=== PATIENT | male | born 1995 | race Caucasian/White ===

== ENCOUNTER 2020-03-29 13:54 | Emergency (ER) | payer MEDICAID, OTHER ==
[~2020-03-29] VITALS: Ht 160 cm; Wt 56.0 kg
[2020-03-29] MEDS ORDERED: HYDROCODONE/ACETAMINOPHEN 5/325MG TABLET PO ONE (14:45)
[2020-03-29] MEDS ORDERED: KETOROLAC 60MG/2ML VIAL IM ONE (14:45)
[2020-03-29] MEDS ORDERED: LIDOCAINE HCL 1% 20ML VIAL (Pyxis) INJ INFIL ONE (17:30)
[2020-03-29] MEDS ORDERED: BACITRACIN ZINC OINT UDPKT TOP ONE (17:45)
[2020-03-29 18:10] VITALS: BP 122/77
== END 2020-03-29 18:41 | disposition home or self-care (01) ==
LOC: ER 14:05
DX: S92.591A Other fracture of right lesser toe(s), initial encounter for closed fracture (principal); W18.39XA Other fall on same level, initial encounter; Y93.89 Activity, other specified; Y92.89 Other specified places as the place of occurrence of the external cause; Y99.8 Other external cause status; Z90.49 Acquired absence of other specified parts of digestive tract
CPT/HCPCS: 11730; 73630; 96372; 99284; J1885; J3490; Z7610; 99283